=== PATIENT | female | born 1995 | race Caucasian/White ===

== ENCOUNTER → 2024-07-10 13:11 | Outpatient (REF) | payer BC, SELFPAY | LOC: HWRAD 13:11 | PROVIDERS: ATTENDING PHYSICIAN Obstetrics & Gynecology Gynecology; FAMILY PHYSICIAN Nurse Practitioner | DX: N93.9 Abnormal uterine and vaginal bleeding, unspecified (principal) | CPT/HCPCS: 76830; 76856 ==

== ENCOUNTER → 2024-10-02 06:51 | Outpatient (REF) | payer BC, SELFPAY | LOC: PNTC 06:51 | PROVIDERS: ATTENDING PHYSICIAN Student in an Organized Health Care Education/Training Program | DX: Z36.0 Encounter for antenatal screening for chromosomal anomalies (principal) | CPT/HCPCS: 36415; 76801; 76813 ==

== ENCOUNTER → 2024-11-28 07:00 | Outpatient (REF) | payer BC, SELFPAY | LOC: PNTC 07:00 | PROVIDERS: ATTENDING PHYSICIAN Student in an Organized Health Care Education/Training Program | DX: Z34.90 Encounter for supervision of normal pregnancy, unspecified, unspecified trimester (principal) | CPT/HCPCS: 76805; 76817 ==

== ENCOUNTER 2025-04-18 00:14 | Inpatient (IN) | payer BC, SELFPAY ==
[2025-04-18 00:38] VITALS: BP 124/84; BMI 32.2
[2025-04-18] MEDS: LR 1000 IV (01:00)
[2025-04-18 01:20] LABS: Hematocrit 36.6 % (37.0-47.0); Hemoglobin 12.9 g/dL (12.0-16.0); Mean Corp Hgb Conc. 35.2 g/dL (33.0-37.0); Mean Corpuscular Volume 84.5 fL (81.0-99.0); Nucleated Red Blood Cells % 0 %; Platelet Count 245 10^3/uL (130-400); Red Cell Dist. Width 13.5 % (11.5-14.5)
[2025-04-18] MEDS: BICITRA 30 ML PO (01:55)
[2025-04-18] MEDS: PITOCIN 30 UNITS/NSS 500 ML IV (02:15)
[2025-04-18 02:22] LABS: Cord ABG Comment CORD BLOOD
[2025-04-18 02:27] LABS: B.E. Cord ABG -5.7 mMOL/L; HCO3 Cord ABG 21.1 mmol/L; O2 Saturation % Cord ABG 28.5 %; PCO2 Cord ABG 45 mmHg; PO2 Cord ABG 16 mmHg; pH Cord ABG 7.28
[2025-04-18 02:31] LABS: B.E. Cord ABG -7.3 mMOL/L; HCO3 Cord ABG 21.2 mmol/L; O2 Saturation % Cord ABG 15.2 %; PCO2 Cord ABG 53 mmHg; PO2 Cord ABG 11 mmHg; pH Cord ABG 7.21
[2025-04-18] MEDS: TORADOL 15 MG IV ×4 (07:03→23:39)
--- NOTE | 2025-04-18 07:35 | W.PN.ANS.POP ---
Anesthesia Post Operative
- Anesthesia Post Op Note
Vital Signs Stable-See Nursing Note: Yes
Airway Patent: Yes
Adequate Pain Control: Yes
Change in Mental Status: No
Current Postoperative Nausea & Vomiting: No
Anesthesia Complications: No
General Anesthetic Recall: No
Unplanned Admission: No
Post Op Hydration Adequate: Yes
[2025-04-18] MEDS: COLACE 100 MG PO ×2 (07:43→19:45)
[2025-04-18] MEDS: PRENATAL PLUS 1 TABLET PO (07:43)
[2025-04-18] MEDS: FLUSH (NSS) 3 FLUSH IV (23:39)
[2025-04-19 04:09] LABS: Hematocrit 30.9 % (37.0-47.0); Hemoglobin 11.0 g/dL (12.0-16.0); Mean Corp Hgb Conc. 35.6 g/dL (33.0-37.0); Mean Corpuscular Volume 86.8 fL (81.0-99.0); Platelet Count 226 10^3/uL (130-400); Red Cell Dist. Width 13.5 % (11.5-14.5)
[2025-04-19] MEDS: PRENATAL PLUS 1 TABLET PO (08:42)
[2025-04-19] MEDS: COLACE 100 MG PO ×2 (08:42→20:19)
[2025-04-19] MEDS: TYLENOL 650 MG PO ×3 (08:42→20:53)
[2025-04-19] MEDS: MOTRIN 600 MG PO ×3 (08:42→20:53)
[2025-04-20] MEDS: TYLENOL 650 MG PO ×4 (02:59→22:04)
[2025-04-20] MEDS: MOTRIN 600 MG PO ×3 (02:59→22:04)
[2025-04-20] MEDS: PRENATAL PLUS 1 TABLET PO (08:39)
[2025-04-20] MEDS: COLACE 100 MG PO ×2 (08:39→20:28)
[2025-04-20 12:46] LABS: Syphilis/T. pallidum Ab Reflex Negative (Negative)
[2025-04-21] MEDS: MOTRIN 600 MG PO (04:05)
[2025-04-21] MEDS: TYLENOL 650 MG PO (04:05)
[2025-04-21] MEDS: COLACE 100 MG PO (08:37)
[2025-04-21] MEDS: PRENATAL PLUS 1 TABLET PO (08:37)
--- NOTE | 2025-04-21 09:52 | W.DS.TRANS ---
DC Summary - Home Care Consultant
-
Discharge Instructions:
Discharge Diagnosis/Procedures section
Instructions:
Stand-Alone Forms: LDRP Delivery
Changes to Home Medications: No
Discharge Medications:
DC Medications w/original date entered in [facility]
prenat.vits,mabel,gfi-rqrb-nstjm 1 tab PO DAILY 04/18/25
acetaminophen 325 mg tablet 650 mg (2 x 325 mg) PO Q4HPRN PRN mild pain #0 tabs 04/21/25
docusate sodium 100 mg capsule 100 mg PO BID #0 caps 04/21/25
ibuprofen 600 mg tablet 600 mg PO Q6HPRN PRN cramps #30 tabs 04/21/25
sennosides 8.6 mg tablet (Katelynn-toño) 17.2 mg (2 x 8.6 mg) PO HSPRN PRN constipation #0 tabs 04/21/25
simethicone 80 mg chewable tablet 80 mg PO TIDPRN PRN flatulence #0 tabs 04/21/25
Home Medication Changes
Pending Results: Yes (placenta path)
Total time spent discharging patient (in min): 20
== END 2025-04-21 10:07 | disposition home or self-care (01) | DRG 788 ==
LOC: LDRP 00:14
PROVIDERS: ADMITTING PHYSICIAN Obstetrics & Gynecology
PROC: 10D00Z1 Extraction of Products of Conception, Low, Open Approach (ICD-10-PCS; 2025-04-18)
PROC: 6A550ZT Pheresis of Cord Blood Stem Cells, Single (ICD-10-PCS; 2025-04-18)
DX: O48.0 Post-term pregnancy (principal); Z3A.40 40 weeks gestation of pregnancy; Z37.0 Single live birth; O77.0 Labor and delivery complicated by meconium in amniotic fluid; O76 Abnormality in fetal heart rate and rhythm complicating labor and delivery; O99.824 Streptococcus B carrier state complicating childbirth
CPT/HCPCS: 36415; 82803; 85025; 85027; 86780; 86850; 86900; 86901; 88307